=== PATIENT | male | born 1935 | race Caucasian/White ===

== ENCOUNTER 2017-06-12 08:45 | Emergency (ER) | payer MEDICARE, OTHER ==
[2017-06-12 08:56] VITALS: BP 138/78
[2017-06-12] MEDS ORDERED: Bacitracin Oint 1 GM U/D Packet TOP ONE (09:18)
[2017-06-12] MEDS ORDERED: Lidocaine 1% with EPINEPHrine 1:100,000 50 ML MDV SUBCUT STA (09:18)
--- NOTE | 2017-06-12 09:21 | EDM.PDOC ---
ED HPI GENERAL MEDICAL PROBLEM - General Chief Complaint: Laceration Stated Complaint: FALL VIA NORTH Time Seen by Provider: 06/12/17 09:12 Source of Information: Reports: Patient, RN Notes Reviewed History Limitations: Reports: No Limitations - History of Present Illness INITIAL COMMENTS - FREE TEXT/NARRATIVE: 82-year-old gentleman presents emergency department day following a head injury , he slipped on the ice this morning fell backwards and hit the back of his head he denies any loss of consciousness no nausea vomiting does have an open laceration bleeding is controlled no other complaints Denies Pain Score (Numeric/FACES): 0 - Related Data Allergies Allergy/AdvReac Type Severity Reaction Status Date / Time enviromental Allergy Other Uncoded 06/12/17 08:54 Home Meds: Home Meds Aspirin [Halfprin] 81 mg PO DAILY 06/01/13 [History] Desonide [Desonide 0.05%] 1 applic TOP BID PRN 06/01/13 [History] Fluticasone Propionate [Flovent] 2 puff IH DAILY 06/01/13 [History] Metoprolol Tartrate [Lopressor] 50 mg PO DAILY 06/01/13 [History] Multivitamin [Multi-Vitamin Daily] 1 each PO DAILY 06/01/13 [History] Cabery-3 Fatty Acids [Cabery-3] 1,000 mg PO DAILY 06/01/13 [History] Pravastatin Sodium [Pravastatin (Pravachol)] 40 mg PO BEDTIME 06/01/13 [History] Triamcinolone Acetonide [Triamcinolone Acetonide 0.1% Crm] 1 applic TOP BID PRN 06/01/13 [History] Past Medical History HEENT History: Reports: Hard of Hearing, Impaired Vision Cardiovascular History: Reports: Arrhythmia, High Cholesterol, Hypertension Dermatologic History: Reports: Other (See Below) Other Dermatologic History: penphagoid - Infectious Disease History Infectious Disease History: Reports: Chicken Pox, Mumps - Past Surgical History HEENT Surgical History: Reports: Tonsillectomy GI Surgical History: Reports: Colonoscopy Social & Family History - Tobacco Use Smoking Status *Q: Never Smoker Years of Tobacco use: 6 Used Tobacco, but Quit: Yes Month Tobacco Last Used: 01/1967 Second Hand Smoke Exposure: No - Caffeine Use Caffeine Use: Reports: Coffee, Soda, Tea - Alcohol Use Days Per Week of Alcohol Use: 7 Number of Drinks Per Day: 2 Total Drinks Per Week: 14 - Recreational Drug Use Recreational Drug Use: No ED ROS GENERAL - Review of Systems Review Of Systems: See Below Constitutional: Reports: No Symptoms HEENT: Reports: No Symptoms Respiratory: Reports: No Symptoms Cardiovascular: Reports: No Symptoms GI/Abdominal: Reports: No Symptoms : Reports: No Symptoms Skin: Reports: Wound Neurological: Reports: No Symptoms ED EXAM, SKIN/RASH Exam: See Below Exam Limited By: No Limitations General Appearance: Alert, WD/WN, No Apparent Distress Eye Exam: Bilateral Eye: Normal Inspection Ears: Normal External Exam, Normal Canal, Hearing Grossly Normal, Normal TMs Nose: Normal Inspection, Normal Mucosa, No Blood Throat/Mouth: Normal Inspection, Normal Lips, Normal Teeth, Normal Gums, Normal Oropharynx, Normal Voice, No Airway Compromise Head: Normocephalic, Other (Laceration approximately 5 cm in length at the occipital region scalp) Neck: Normal Inspection, Supple, Non-Tender, Full Range of Motion Respiratory/Chest: No Respiratory Distress, Lungs Clear, Normal Breath Sounds, No Accessory Muscle Use Cardiovascular: Regular Rate, Rhythm, No Murmur ED SKIN PROCEDURES - Laceration/Wound Repair Head Lac/Wound length In cm: 7 Appearance: Subcutaneous, Clean Distal NVT: Neuro & Vascular Intact, No Tendon Injury Anesthetic Type: Local Local Anesthesia - Lidocaine (Xylocaine): 1% with EPI Local Anesthetic Volume: 4cc Skin Prep: Chlorhexidine (Hibiciens), Saline Saline Irrigation (cc's): 100 Exploration/Debridement/Repair: Wound Explored, In a Bloodless Field, Explored to Base Closed with: [place] # of Sutures: 10 Sterile Dressing Applied: Nurse Tetanus Status Addressed: Yes (2012) Complications: No Course - Vital Signs Last Recorded V/S: Last Vital Signs Temp 97.2 F 06/12/17 09:05 Pulse 82 06/12/17 09:05 Resp 16 06/12/17 09:05 BP 138/78 06/12/17 09:05 Pulse Ox 98 06/12/17 09:05 - Orders/Labs/Meds Meds: Medications Discontinued Medications Generic Name Dose Route Start Last Admin Trade Name Freq PRN Reason Stop Dose Admin Bacitracin 1 dose 06/12/17 09:18 06/12/17 10:20 Bacitracin Oint 1 Gm TOP 06/12/17 09:19 1 dose ONETIME ONE Administration Lidocaine/Epinephrine 20 ml 06/12/17 09:18 06/12/17 10:19 Xylocaine 1% With Epinephrine 1:100,000 SUBCUT 06/12/17 09:19 10 ml NOW STA Administration Departure - Departure Time of Disposition: 10:50 Disposition: Home, Self-Care 01 Condition: Good Clinical Impression: Head injury Qualifiers: Encounter type: initial encounter Qualified Code(s): S09.90XA - Unspecified injury of head, initial encounter - Discharge Information Referrals: PCP,None [Primary Care Provider] - Forms: ED Department Discharge Additional Instructions: Follow wound care instruction sheet, staple removal in 10 days, follow with your primary care for staple removal or return to the emergency department - Assessment/Plan Plan: Assessment Acuity = acute Site and laterality = 7 cm laceration scalp occipital region Etiology = secondary to a fall Manifestations = none Location of injury = Home Lab values = CT scan of the head shows no acute intracranial process Plan Staple removal in 10 days, follow wound care instruction sheet return your primary care or the emergency department for staple removal Patient was in agreement with the plan all questions were answered, they were instructed to return to the emergency department or call for worsening symptoms. This note was dictated using [employer] voice recognition software please call with any questions.
--- NOTE | 2017-06-12 10:13 | CT ---
Head wo Cont INDICATION: head trauma fall Total DLP 815 COMPARISON: None FINDINGS: No acute intracranial hemorrhage, mass, or edema. Generalized cerebral and cerebellar volum e loss. Mild low attenuation in the periventricular and subcortical deep white matter is nonspecific, but most compatible with chronic small-vessel ischemic changes. Scalp laceration posteriorly. Remain zachery unremarkable. IMPRESSION: No acute intracranial abnormality.
== END 2017-06-12 11:00 | disposition home or self-care (01) ==
LOC: JP.ED 08:45
DX: S01.01XA Laceration without foreign body of scalp, initial encounter (principal); I10 Essential (primary) hypertension; Z79.82 Long term (current) use of aspirin; Z91.09 Other allergy status, other than to drugs and biological substances; Z79.899 Other long term (current) drug therapy; W19.XXXA Unspecified fall, initial encounter; Y92.009 Unspecified place in unspecified non-institutional (private) residence as the place of occurrence of the external cause
CPT/HCPCS: 12002; 70450; 70450-26; 99282-25; 99284-25

== ENCOUNTER 2018-01-08 06:49 | Day surgery (SDC) | payer MEDICARE, OTHER ==
[2018-01-08] MEDS ORDERED: fentaNYL 100 MCG/2 ML SDV ONE (07:23)
[2018-01-08] MEDS ORDERED: Propofol 200 MG/20 ML SDV ONE (07:23)
[2018-01-08] MEDS ORDERED: Lactated Ringers 1,000 ML IV SCH (07:30)
[2018-01-08 10:06] VITALS: BP 153/80
--- NOTE | 2018-01-08 10:53 | OR ---
DATE OF PROCEDURE: 01/08/2018 PREOPERATIVE DIAGNOSIS: History of adenomatous colon polyps. POSTOPERATIVE DIAGNOSES: Diverticulosis and history of adenomatous colon polyps. PROCEDURE: Colonoscopy to the cecum. SURGEON: Shashank Ferguson M.D. ANESTHESIA: IV anesthesia with monitored anesthesia care. INDICATION: This 82-year-old white male is referred for a colonoscopy because of a history of adenomatous colon polyps. His last colonoscopic exam was done three years ago. I counseled him for the procedure including risks and alternatives, and he gave his informed consent to proceed. DESCRIPTION OF PROCEDURE: The patient was placed in the left lateral decubitus position. IV anesthesia was administered by the Anesthesia Service. Time-out was held. A rectal exam was performed, which was unremarkable. The flexible video Olympus colonoscope was introduced through his anus, up his rectum, and out of his colon all the way to the cecum. En route, we saw multiple left-sided diverticula. There was no bleeding or inflammation associated with them. Once the cecum was reached, the scope was slowly withdrawn, examining the mucosa throughout. No additional mucosal abnormalities were noted. The scope was retroflexed in the rectum with the distal rectum appearing unremarkable. The scope was straightened and removed. He tolerated the procedure well. Shashank Ferguson MD /[id number] MTDD
== END 2018-01-08 10:00 | disposition home or self-care (01) ==
LOC: JP.SDS 06:49
PROVIDERS: ATTEND Surgery
DX: Z12.11 Encounter for screening for malignant neoplasm of colon (principal); K57.30 Diverticulosis of large intestine without perforation or abscess without bleeding; Z86.010 Personal history of colon polyps; Z79.51 Long term (current) use of inhaled steroids; Z79.82 Long term (current) use of aspirin; Z79.899 Other long term (current) drug therapy; Z98.890 Other specified postprocedural states
CPT/HCPCS: G0105; J2704; J3010; J7120

== ENCOUNTER 2020-11-07 12:20 | Emergency (ER) | payer MEDICARE ==
--- NOTE | 2020-11-07 12:41 | EDM.PDOC ---
ED HPI GENERAL MEDICAL PROBLEM - General Chief Complaint: Back Pain or Injury Stated Complaint: MEDICAL VIA NORTH Time Seen by Provider: 11/07/20 12:34 Source of Information: Reports: Patient, EMS, RN Notes Reviewed History Limitations: Reports: No Limitations - History of Present Illness INITIAL COMMENTS - FREE TEXT/NARRATIVE: 85-year-old gentleman presents emergency department with a complaint of mid back pain, he fell couple days ago unfortunately he hit the corner of a dresser mid back region and his pain has not improved to the point where he had to sleep on the floor last night and has difficulty moving because of the pain, he is pain- free when he lays still however pain is a significantly exacerbated with movement no loss of bowel or bladder no difficulty breathing. He his daughter did present to the emergency department and provided more information states that he had a syncopal event and did hit his head, he did not reveal this to us during the initial screening therefore tests and the work-up were delayed - Related Data Allergies Allergy/AdvReac Type Severity Reaction Status Date / Time enviromental Allergy Other Uncoded 11/07/20 12:21 Home Meds: Home Meds Aspirin [Halfprin] 81 mg PO DAILY 06/01/13 [History] Desonide [Desonide 0.05%] 1 applic TOP BID PRN 06/01/13 [History] Fluticasone Propionate [Flovent] 2 puff IH DAILY 06/01/13 [History] Metoprolol Tartrate [Lopressor] 50 mg PO DAILY 06/01/13 [History] Multivitamin [Multi-Vitamin Daily] 1 each PO DAILY 06/01/13 [History] Fitzwilliam-3 Fatty Acids [Fitzwilliam-3] 1,000 mg PO DAILY 06/01/13 [History] Pravastatin Sodium [Pravastatin (Pravachol)] 40 mg PO BEDTIME 06/01/13 [History] Triamcinolone Acetonide [Triamcinolone Acetonide 0.1% Crm] 1 applic TOP BID PRN 06/01/13 [History] Past Medical History HEENT History: Reports: Hard of Hearing, Impaired Vision Cardiovascular History: Reports: Arrhythmia, High Cholesterol, Hypertension Gastrointestinal History: Reports: Colon Polyp Oncologic (Cancer) History: Reports: Prostate Dermatologic History: Reports: Other (See Below) Other Dermatologic History: penphagoid - Infectious Disease History Infectious Disease History: Reports: Chicken Pox, Measles, Mumps - Past Surgical History HEENT Surgical History: Reports: Tonsillectomy Cardiovascular Surgical History: Reports: None GI Surgical History: Reports: Colonoscopy, Polypectomy Male Surgical History: Reports: Prostate Biopsy Dermatological Surgical History: Reports: None Social & Family History - Family History Family Medical History: No Pertinent Family History - Tobacco Use Tobacco Use Status *Q: Never Tobacco User - Caffeine Use Caffeine Use: Reports: Coffee - Recreational Drug Use Recreational Drug Use: No ED ROS GENERAL - Review of Systems Review Of Systems: See Below Constitutional: Reports: No Symptoms Respiratory: Reports: No Symptoms Cardiovascular: Reports: No Symptoms GI/Abdominal: Reports: No Symptoms Musculoskeletal: Reports: Back Pain ED EXAM, UPPER BACK/NECK PAIN - Physical Exam Exam: See Below Exam Limited By: No Limitations General Appearance: Alert, WD/WN, No Apparent Distress Cardiovascular/Respiratory: No Respiratory Distress Back Exam: Normal Inspection, Decreased Range of Motion, Vertebral Tenderness (About T6). No: CVA Tenderness (R), CVA Tenderness (L) Course - Vital Signs Last Recorded V/S: Last Vital Signs Temp 97 F 11/07/20 12:29 Pulse 90 11/07/20 16:05 Resp 20 11/07/20 12:29 BP 152/66 H 11/07/20 16:05 Pulse Ox 97 11/07/20 16:05 - Orders/Labs/Meds Orders: Active Orders 24 hr Category Date Time Status EKG Documentation Completion [RC] ASDIRECTED Care 11/07/20 15:58 Active Iopamidol [Isovue-300 (61%)] Med 11/07/20 15:45 Active 100 ml IV . DIRECTED Sodium Chloride 0.9% [Normal Saline] 1,000 ml Med 11/07/20 15:15 Active IV ASDIRECTED Sodium Chloride 0.9% [Normal Saline] 80 ml Med 11/07/20 15:45 Active IV ASDIRECTED EKG 12 Lead [EK] Routine Ther 11/07/20 15:58 Ordered Medication Orders Sodium Chloride (Normal Saline) 1,000 mls @ 500 mls/hr IV ASDIRECTED DANIEL Sodium Chloride (Normal Saline) 80 mls @ 3 mls/sec IV ASDIRECTED DANIEL Last Admin: 11/07/20 15:51 Dose: 3 mls/sec Documented by: DOUG Iopamidol (Iopamidol 612 Mg/Ml 100 Ml Bottle) 100 ml IV . DIRECTED DANIEL Last Admin: 11/07/20 15:51 Dose: 100 ml Documented by: [employer] Labs: Laboratory Tests 11/07/20 11/07/20 Range/Units 15:15 15:15 WBC 6.4 (4.5-11.0) K/uL RBC 3.86 L (4.30-5.90) M/uL Hgb 12.5 D (12.0-15.0) g/dL Hct 37.8 L (40.0-54.0) % MCV 98 (80-98) fL MCH 32 H (27-31) pg MCHC 33 (32-36) % Plt Count 152 (150-400) K/uL Neut % (Auto) 84 H (36-66) % Lymph % (Auto) 5 L (24-44) % Lamb % (Auto) 9 H (2-6) % Eos % (Auto) 2 (2-4) % Baso % (Auto) 0 (0-1) % Sodium 140 (140-148) mmol/L Potassium 4.1 (3.6-5.2) mmol/L Chloride 102 (100-108) mmol/L Carbon Dioxide 29 (21-32) mmol/L Anion Gap 9.3 (5.0-14.0) mmol/L BUN 20 H (7-18) mg/dL Creatinine 1.0 (0.8-1.3) mg/dL Est Cr Clr Drug Dosing 61.43 mL/min Estimated GFR (MDRD) > 60 (>60) Glucose 108 H (74-106) mg/dL Calcium 9.3 (8.5-10.1) mg/dL Meds: Medications Generic Name Dose Route Start Last Admin Trade Name Freq PRN Reason Stop Dose Admin Sodium Chloride 1,000 mls @ 500 mls/hr 11/07/20 15:15 Normal Saline IV ASDIRECTED DANIEL Sodium Chloride 80 mls @ 3 mls/sec 11/07/20 15:45 11/07/20 15:51 Normal Saline IV 3 mls/sec ASDIRECTED DANIEL Administration Iopamidol 100 ml 11/07/20 15:45 11/07/20 15:51 Iopamidol 612 Mg/Ml 100 Ml Bottle IV 100 ml . DIRECTED DANIEL Administration Discontinued Medications Generic Name Dose Route Start Last Admin Trade Name Ashok PRN Reason Stop Dose Admin Cyclobenzaprine HCl 10 mg 11/07/20 14:08 11/07/20 14:28 Cyclobenzaprine 10 Mg Tab PO 11/07/20 14:09 10 mg ONETIME ONE Administration Ketorolac Tromethamine 30 mg 11/07/20 14:08 11/07/20 14:36 Ketorolac 30 Mg/Ml Sdv IM 11/07/20 14:09 30 mg ONETIME ONE Administration Departure - Departure Time of Disposition: 18:50 Disposition: Home, Self-Care 01 Condition: Fair Clinical Impression: Compression fracture - Discharge Information Referrals: PCP,None [Primary Care Provider] - Forms: ED Department Discharge Additional Instructions: Use ibuprofen for baseline pain control use the hydrocodone for breakthrough pain, if you use the hydrocodone be cautious of constipation may want to take a stool softener and do not take this medication on empty stomach please follow-up with your primary care in the next 3 to 5 days for reevaluation and review of the CT scan results, Sepsis Event Note (ED) - Evaluation Sepsis Screening Result: No Definite Risk - Focused Exam Vital Signs: Vital Signs Temp Pulse Resp BP Pulse Ox 11/07/20 16:05 90 152/66 H 97 11/07/20 14:25 96 176/77 H 97 11/07/20 13:36 93 184/80 H 11/07/20 12:29 97 F 99 20 153/87 H 98 11/07/20 12:25 97 F 99 20 153/87 H 98 - My Orders Last 24 Hours: My Active Orders 11/07/20 15:15 Sodium Chloride 0.9% [Normal Saline] 1,000 ml IV ASDIRECTED 11/07/20 15:45 Iopamidol [Isovue-300 (61%)] 100 ml IV . DIRECTED Sodium Chloride 0.9% [Normal Saline] 80 ml IV ASDIRECTED 11/07/20 15:58 EKG Documentation Completion [RC] ASDIRECTED EKG 12 Lead [EK] Routine - Assessment/Plan Last 24 Hours: My Active Orders 11/07/20 15:15 Sodium Chloride 0.9% [Normal Saline] 1,000 ml IV ASDIRECTED 11/07/20 15:45 Iopamidol [Isovue-300 (61%)] 100 ml IV . DIRECTED Sodium Chloride 0.9% [Normal Saline] 80 ml IV ASDIRECTED 11/07/20 15:58 EKG Documentation Completion [RC] ASDIRECTED EKG 12 Lead [EK] Routine Plan: She is assessment Acuity = acute Site and laterality = compression fracture T12 Etiology = fall Manifestations = pain Location of injury = Home Lab values = CBC BMP unremarkable CT scan of the head shows significant volume loss thought to be related to small vessel chronic ischemic disease, CT scan of the chest shows compression fraction of T12 undetermined age as well as old compression fracture of T8 Plan Was able to get his pain under control with Toradol and Flexeril as well as fentanyl. Had a long discussion reviewing CT scan results and provided copies to his family he is going to follow-up with his primary care for further evaluation. Prescription written for hydrocodone 5/325 1 tab p.o. 3 times daily as needed total #10 provided for pain control. This note was dictated using [employer] voice recognition software please call with any questions on syntax or grammar.
--- NOTE | 2020-11-07 13:48 | CR ---
Thoracic Spine 3V CLINICAL HISTORY: Fall, pain FINDINGS: There is a compression deformity of T12. Chronology is uncertain. Alignment is maintained. There is no significant osteophytosis. The pedicles are unremarkable. Impression: Moderate compression deformity at T12 of uncertain chronology
[2020-11-07] MEDS ORDERED: Cyclobenzaprine 10 MG Tab PO ONE (14:08)
[2020-11-07] MEDS ORDERED: Ketorolac 30 MG/ML SDV IM ONE (14:08)
[2020-11-07] MEDS ORDERED: Sodium Chloride 0.9% 1,000 ML IV SCH (15:15)
[2020-11-07] MEDS ORDERED: Sodium Chloride 0.9% 80 ML IV SCH (15:45)
[2020-11-07] MEDS ORDERED: Iopamidol 612 MG/ML 100 ML Bottle IV SCH (15:45)
[2020-11-07 16:05] VITALS: BP 152/66; PULSE 90
--- NOTE | 2020-11-07 16:37 | CRLCT ---
INDICATION: Status post fall with T6 pain. COMPARISON: CT of the chest from 06/25/2018 TECHNIQUE: : CT examination of the chest was performed with the uneventful intravenous administration of 100 cc of Isovue-300 while 3 mm thick axial sections were obtained from above the apices of the lungs to the lung bases. Please note that all CT scans at this facility use dose modulation, iterative reconstruction, and/or weight-based dosing when appropriate to reduce radiation dose to as low as reasonably achievable. FINDINGS: : The previously seen mild patchy infiltrate in the posterior left lung base has resolved. There continues to be minimal patchy density in the dependent portions of both lower lobes consistent with mild dependent atelectasis. The previously seen mild linear atelectasis in the posterior inferior lingula at the lung base has nearly completely resolved. The lungs are otherwise clear. There is satisfactory in enhancement of the pulmonary arteries with no sign of pulmonary embolism. There is no sign of mediastinal or hilar mass or adenopathy. Again seen is moderate triple-vessel coronary calcification. Again seen is mild calcification of the mitral valve annulus. The heart is otherwise normal in appearance for the patient`s age, as are the aorta and other ascending great vessels. There is no sign of supraclavicular or axillary mass or adenopathy. The liver is again seen to be slightly low in density representing mild fatty infiltration. The rest of the liver is normal in appearance. The visualized spleen, pancreas, visualized superior right kidney, and adrenals are normal in appearance. Again seen is a cyst in the lower pole of the left kidney, only partially included on today`s study, measuring at least 2.2 centimeters in diameter. There is a new moderate T12 compression fracture with prominent depression of the superior T12 endplate. There is minimal retropulsion of the posterior-superior margin of the T12 vertebral body into the spinal canal, without spinal stenosis. There is no definite paraspinal soft tissue swelling to suggest that this is an acute fracture, although an acute fracture cannot be excluded. Again seen are mild superior T8 and T9 endplate fractures with stable minimal anterior wedging of the T8 vertebral body from an old minimal compression fracture. There is no sign of any additional osseous abnormality, specifically with no sign of any fracture in the T6 region to correspond to the history of pain in this region. There is no sign of fracture of the sternum, manubrium, visualized shoulder girdle, or ribs. IMPRESSION: New moderate T12 compression fracture of indeterminate age. No definite paraspinous soft tissue swelling seen. Stable old mild T8 compression fracture and stable mild superior T8 and T9 endplate fractures. No sign of any osseous abnormality more superiorly in the T6 region to correlate with the history of pain. Stable moderate triple-vessel coronary calcification. Please note that all CT scans at this facility use dose modulation, iterative reconstruction, and/or weight-based dosing when appropriate to reduce radiation dose to as low as reasonably achievable. Dictated by Gonzalo Wilson MD @ 11/07/2020 4:36:[address] Gonzalo Wilson @ Nov 07 2020 4:36PM
--- NOTE | 2020-11-07 17:35 | CRLCT ---
DATE: 11/07/2020. CLINICAL HISTORY: Patient with fall and head injury. TECHNIQUE: Standard helical CT image acquisition of the brain was performed. COMPARISON: Head CT dated 06/12/2017. FINDINGS: There is no intracranial hemorrhage. No extra-axial collection, mass effect, or midline shift. Patchy hypoattenuation within the white matter of both hemispheres likely reflects sequela of chronic small vessel ischemia. Multifocal intracranial atherosclerotic calcification. Mild to moderate diffuse parenchymal volume loss with resulting prominence of cerebral sulci and the ventricular system. The calvarium is unremarkable. Bilateral lens replacements. The paranasal sinuses are unremarkable. The mastoid air cells are unremarkable. The soft tissues are unremarkable. IMPRESSION: 1. No CT evidence of acute intracranial abnormality or closed-head injury. 2. No significant interval change in mild to moderate diffuse parenchymal volume loss and findings most consistent with sequela of chronic small vessel ischemia. Please note that all CT scans at this facility use dose modulation, iterative reconstruction, and/or weight-based dosing when appropriate to reduce radiation dose to as low as reasonably achievable. Dictated by Regulo Stanley MD @ 11/07/2020 5:34:[address] Regulo Stanley @ Nov 07 2020 5:34PM
== END 2020-11-07 19:17 | disposition home or self-care (01) ==
LOC: JP.ED 12:20
DX: S22.050A Wedge compression fracture of T5-T6 vertebra, initial encounter for closed fracture (principal); E78.00 Pure hypercholesterolemia, unspecified; I10 Essential (primary) hypertension; Z91.09 Other allergy status, other than to drugs and biological substances; Z79.82 Long term (current) use of aspirin; W18.09XA Striking against other object with subsequent fall, initial encounter
CPT/HCPCS: 36415; 70450; 71260; 72072; 80048; 85025; 93005; 96372; 99285; A9270; J1885; Q9967

== ENCOUNTER 2020-11-08 14:20 | Observation (INO) | payer MEDICARE ==
[2020-11-08] MEDS ORDERED: Ondansetron 4 MG Tab.DIS PO PRN (15:23)
[2020-11-08] MEDS ORDERED: Ondansetron 4 MG/2 ML SDV IV PRN (15:23)
[2020-11-08] MEDS ORDERED: Ibuprofen 600 MG Tab PO PRN (15:23)
[2020-11-08] MEDS ORDERED: Albuterol 0.083% 2.5 MG/3 ML Neb Soln NEB PRN (15:23)
[2020-11-08] MEDS ORDERED: Magnesium Hydroxide 400 MG/5 ML Susp 30 ML Cup PO PRN (15:23)
--- NOTE | 2020-11-08 15:33 | PCM.HP.2 ---
H&P History of Present Illness - General Date of Service: 11/08/20 Admit Problem/Dx: Admission Diagnosis/Problem Admission Diagnosis/Problem Compression fracture of T12 vertebra Source of Information: Patient, Family, Provider History Limitations: Reports: No Limitations - History of Present Illness Initial Comments - Free Text/Narative: CC: back hurts HPI: Itz presents as a direct admission after follow-up in the clinic with his primary care provider. He reports that he fell on Thursday night, 3 nights ago. He lost his balance and fell backwards striking the middle of his back on the corner of a piece of furniture. He had immediate achy pain but was still able to function to some extent. Over the next couple of days he had progressive achy with some sharp pains right in the middle of his back. The pain occupied a large area of the center of his back but did not specifically radiate. He tried aspirin at home as well as some pain pills with some relief f rom the pain pills. Pain is much worse with activity and better when he is laying flat. He has been having difficulty walking and getting around so he came to the emergency room yesterday. He was diagnosed with a T12 compression fracture but wanted to try it at home. He had a very difficult night with fair amount of pain and very poor mobility so he went to the clinic today and was sent for direct admission. He thinks that things have been going well recently but his daughter notes that he has had difficulty with passing urine and has seemed to be "off". He does not seem as sharp or active his usual but this has been going on for several months. He does not report any headaches, fevers, shortness of breath or chest pain. No change in bowel habits. No obvious sick contacts. No new medications. - Related Data Allergies/Adverse Reactions: Allergies Allergy/AdvReac Type Severity Reaction Status Date / Time enviromental Allergy Other Uncoded 11/07/20 12:21 Home Medications: Home Meds Aspirin [Halfprin] 81 mg PO DAILY 06/01/13 [History] Desonide [Desonide 0.05%] 1 applic TOP BID PRN 06/01/13 [History] Fluticasone Propionate [Flovent] 2 puff IH DAILY 06/01/13 [History] Metoprolol Tartrate [Lopressor] 50 mg PO DAILY 06/01/13 [History] Multivitamin [Multi-Vitamin Daily] 1 each PO DAILY 06/01/13 [History] Newberg-3 Fatty Acids [Newberg-3] 1,000 mg PO DAILY 06/01/13 [History] Pravastatin Sodium [Pravastatin (Pravachol)] 40 mg PO BEDTIME 06/01/13 [History] Triamcinolone Acetonide [Triamcinolone Acetonide 0.1% Crm] 1 applic TOP BID PRN 06/01/13 [History] Past Medical History HEENT History: Reports: Hard of Hearing, Impaired Vision Cardiovascular History: Reports: Arrhythmia, High Cholesterol, Hypertension Gastrointestinal History: Reports: Colon Polyp Oncologic (Cancer) History: Reports: Prostate Dermatologic History: Reports: Other (See Below) Other Dermatologic History: penphagoid - Infectious Disease History Infectious Disease History: Reports: Chicken Pox, Measles, Mumps - Past Surgical History HEENT Surgical History: Reports: Tonsillectomy Cardiovascular Surgical History: Reports: None GI Surgical History: Reports: Colonoscopy, Polypectomy Male Surgical History: Reports: Prostate Biopsy Dermatological Surgical History: Reports: None Social & Family History - Family History Family Medical History: No Pertinent Family History - Tobacco Use Tobacco Use Status *Q: Unknown Ever Used Tobacco Tobacco Use Within Last Twelve Months: No - Caffeine Use Caffeine Use: Reports: Coffee H&P Review of Systems - Review of Systems: Review Of Systems: See Below Free Text/Narrative: A complete 12 point review of systems was obtained. Pertinent positives and negatives are noted in the history of present illness. All other systems were reviewed and were negative except as noted. Exam - Exam Exam: See Below - Exam Quality Assessment: No: Supplemental Oxygen General: Alert, Oriented, Cooperative. No: Mild Distress HEENT: Conjunctiva Clear, Mucosa Moist & [place]. No: Scleral Icterus Neck: Supple, Trachea Midline Lungs: Clear to Auscultation, Normal Respiratory Effort Cardiovascular: Regular Rate, Regular Rhythm, Systolic Murmur GI/Abdominal Exam: Normal Bowel Sounds, Soft, Non-Tender, No Distention Back Exam: Paraspinal Tenderness, Vertebral Tenderness (about T12) Extremities: No Pedal Edema, Other (abrasion right knee ). No: Increased Warmth Peripheral Pulses: 2+: Dorsalis Pedis (L), Dorsalis Pedis (R) Skin: Warm, Dry Neuro Extensive - Mental Status: Alert, Oriented x3, Nl Response to Commands Neuro Extensive - Motor, Sensory, Reflexes: No: Dysarthria, Abnormal Motor, Tremor Psychiatric: Alert, Normal Affect *Q Meaningful Use (ADM) - VTE Risk Assess *Q Each Risk Factor Represents 1 Point: Obesity ( BMI > 25 kg/m2) Total Score 1 Point Risk Factors: 1 Each Risk Factor Represents 2 Points: Malignancy (present or previous) Total Score 2 Point Risk Factors: 2 Each Risk Factor Represents 3 Points: Age 75 Years or Greater Total Score 3 Point Risk Factors: 3 Each Risk Factor Represents 5 Points: None Total Score 5 Point Risk Factors: 0 Venous Thromboembolism Risk Factor Score *Q: 6 - Problem List (1) T12 compression fracture SNOMED Code(s): 848288544, 276650239 ICD Code: S22.080A - WEDGE COMPRESSION FRACTURE OF T11-T12 VERTEBRA, INIT Status: Acute Current Visit: Yes Qualifiers: Encounter type: initial encounter Qualified Code(s): S22.080A - Wedge compression fracture of T11-T12 vertebra, initial encounter for closed fracture (2) Weakness generalized SNOMED Code(s): 74058139 ICD Code: R53.1 - WEAKNESS Status: Acute Current Visit: Yes (3) Prostate cancer SNOMED Code(s): 751235679 ICD Code: C61 - MALIGNANT NEOPLASM OF PROSTATE Status: Chronic Current Visit: Yes Problem List Initiated/Reviewed/Updated: Yes Orders Last 24hrs: Active Orders 24 hr Category Date Time Status Patient Status [ADT] Routine ADT 11/08/20 15:23 Active Antiembolic Devices [RC] .Routine Care 11/08/20 15:23 Active Intake and Output [RC] QSHIFT Care 11/08/20 15:23 Active Notify Provider Vital Signs [RC] ASDIRECTED Care 11/08/20 15:23 Active Oxygen Therapy [RC] PRN Care 11/08/20 15:23 Active RT Aerosol Therapy [RC] ASDIRECTED Care 11/08/20 15:26 Active Up With Assistance [RC] ASDIRECTED Care 11/08/20 15:23 Active VTE/DVT Education [RC] Per Unit Routine Care 11/08/20 15:23 Active Vital Signs [RC] Q4H Care 11/08/20 15:23 Active OT Evaluation and Treatment [CONS] Routine Cons 11/08/20 15:28 Active PT Evaluation and Treatment [CONS] Routine Cons 11/08/20 15:26 Active Regular Diet [DIET] Diet 11/08/20 Dinner Active C-REACTIVE PROTEIN [CHEM] Routine Lab 11/08/20 15:29 Ordered SEDIMENTATION RATE MANUAL [HEME] Routine Lab 11/08/20 15:29 Ordered TSH ULTRASENSITIVE [CHEM] Routine Lab 11/08/20 15:29 Ordered UA W/MICROSCOPIC [URIN] Routine Lab 11/08/20 15:29 Ordered Acetaminophen/HYDROcodone [[place] 325-5 MG] Med 11/08/20 15:23 Ordered 1 - 2 tab PO Q4H PRN Albuterol [Proventil Neb Soln] Med 11/08/20 15:23 Ordered 2.5 mg NEB Q4H PRN Calcitonin ([place]) [Miacalcin Nasal [place]] Med 11/08/20 15:30 Ordered 1 ml ROXIE DAILY Docusate Sodium/Sennosides [Senna Plus] Med 11/08/20 15:23 Ordered 1 tab PO BID PRN HYDROmorphone [Dilaudid] Med 11/08/20 15:23 Ordered 0.5 mg IVPUSH Q2H PRN Ibuprofen [Motrin] Med 11/08/20 15:23 Ordered 600 mg PO Q6H PRN Magnesium Hydroxide [Milk of Magnesia] Med 11/08/20 15:23 Ordered 30 ml PO Q12H PRN Melatonin Med 11/08/20 21:00 Ordered 9 mg PO BEDTIME Ondansetron [Zofran ODT] Med 11/08/20 15:23 Ordered 4 mg PO Q6H PRN Ondansetron [Zofran] Med 11/08/20 15:23 Ordered 4 mg IV Q6H PRN Sequential Compression Device [OM.PC] Routine Oth 11/08/20 15:23 Ordered Resuscitation Status Routine Resus Stat 11/08/20 15:23 Ordered Medication Orders Hydrocodone Bitart/Acetaminophen (Acetaminophen/Hydrocodone 325-5 Mg Tab) 1 - 2 tab PO Q4H PRN PRN Reason: Pain Albuterol (Albuterol 0.083% 2.5 Mg/3 Ml Neb Soln) 2.5 mg NEB Q4H PRN PRN Reason: Shortness Of Breath/wheezing Calcitonin [place] (Calcitonin ([place]) Nasal [place] 3.7 Ml Bottle) 1 ml ROXIE DAILY DANIEL Hydromorphone HCl (Hydromorphone 1 Mg/Ml Syringe) 0.5 mg IVPUSH Q2H PRN PRN Reason: Pain (severe 7-10) Ibuprofen (Ibuprofen 600 Mg Tab) 600 mg PO Q6H PRN PRN Reason: Pain/Fever Magnesium Hydroxide (Magnesium Hydroxide 400 Mg/5 Ml Susp 30 Ml Cup) 30 ml PO Q12H PRN PRN Reason: Constipation Melatonin (Melatonin 3 Mg Tab) 9 mg PO BEDTIME DANIEL Ondansetron HCl (Ondansetron 4 Mg Tab.Dis) 4 mg PO Q6H PRN PRN Reason: Nausea able to take PO Ondansetron HCl (Ondansetron 4 Mg/2 Ml Sdv) 4 mg IV Q6H PRN PRN Reason: Nausea/Vomiting Senna/Docusate Sodium (Docusate Sodium/Sennosides 50-8.6 Mg Tab) 1 tab PO BID PRN PRN Reason: Constipation Assessment/Plan Comment:: ASSESSMENT AND PLAN - T12 compression fracture with back pain and weakness-he describes losing his balance but syncope cannot be ruled out. There has been no recurrence of the falling. He may have an occult infection versus other etiology causing his balance difficulties. He is not moving well and is failing despite having pain medications, adequate tools and help at home. -Admission for symptomatic management of pain with ibuprofen and hydrocodone -Calcitonin daily -Physical and occupational therapy -Aspercreme as needed -Consider muscle relaxer -May need TLSO brace Generalized weakness-patient does not endorse this but his daughter has noticed a decline over the winter months and more recently over the last few weeks. No specific symptoms. Examination benign. No evidence for neurologic compromise. Head CT was normal. Labs fairly normal yesterday. -CRP, sedimentation rate, TSH -Urinalysis History of prostate cancer-difficulty with incontinence since that time. Maintenance issues - -DVT prophylaxis-SCD -GI prophylaxis-not indicated -Nutrition-regular -[place] catheter-not indicated CODE STATUS -full code Admission justification -this patient will be admitted to observation status for pain control, physical therapy and expedited work-up Disposition -I anticipate discharge home after the hospital stay Primary care physician -Dr. Otto Brooks M.D. - Mortality Measure Prognosis:: Good
[2020-11-08] MEDS ORDERED: HYDROmorphone 0.5 MG/0.5 ML Syringe IVPUSH PRN (15:48)
[2020-11-08] MEDS ORDERED: Trolamine Salicylate/Aloe Vera 10% Crm 85 GM Tube TOP PRN (16:10)
[2020-11-08] MEDS: Calcitonin (Salmon) Nasal Spray 3.7 ML Bottle NAS SCH (16:37)
[2020-11-08] MEDS: Acetaminophen/HYDROcodone 325-5 MG Tab PO PRN ×2 (18:09→22:04)
[2020-11-08] MEDS: Melatonin 3 MG Tab PO SCH (22:04)
[2020-11-09] MEDS: Acetaminophen/HYDROcodone 325-5 MG Tab PO PRN ×2 (04:42→19:46)
[2020-11-09] MEDS: Calcitonin (Salmon) Nasal Spray 3.7 ML Bottle NAS SCH (08:26)
--- NOTE | 2020-11-09 12:22 | PCM.PN ---
- General Info Date of Service: 11/09/20 Subjective Update: No acute events overnight. Vital signs have been stable. Patient is moving a little better today. Back pain is slightly better today but still fairly significant with activity. He does continue to have episodes of confusion and some difficulty finishing sentences. His balance continues to be off and he seems to be leaning forward. No fevers. Sedimentation rate was mildly elevated but CRP was quite elevated. No obvious cause for this elevation. Functional Status: Reports: Pain Controlled, Tolerating Diet - Review of Systems General: Reports: Weakness Musculoskeletal: Reports: Back Pain Neurological: Reports: Confusion - Patient Data Vitals - Most Recent: Last Vital Signs Temp 36.7 C 11/09/20 08:00 Pulse 82 11/09/20 08:00 Resp 15 11/09/20 08:00 BP 154/83 H 11/09/20 08:00 Pulse Ox 95 11/09/20 08:00 Weight - Most Recent: 99.654 kg I&O - Last 24 Hours: Intake & Output 11/08/20 11/09/20 11/09/20 22:59 06:59 14:59 Intake Total 360 600 Output Total 120 150 Balance 240 450 Lab Results Last 24 Hours: Laboratory Results - last 24 hr 11/08/20 11/08/20 11/08/20 Range/Units 15:29 15:42 15:42 ESR 39 H (0-20) mm/hr C-Reactive Protein 11.92 H (0.0-0.3) mg/dL TSH, Ultra Sensitive 3.447 (0.358-3.740) uIU/mL Urine Color Yellow (YELLOW) Urine Appearance Clear (CLEAR) Urine pH 5.5 (5.0-8.0) Ur Specific [place] 1.015 (1.008-1.030) Urine Protein 30 H (NEGATIVE) mg/dL Urine Glucose (UA) Negative (NEGATIVE) mg/dL Urine Ketones 15 H (NEGATIVE) mg/dL Urine Occult Blood Negative (NEGATIVE) Urine Nitrite Negative (NEGATIVE) Urine Bilirubin Negative (NEGATIVE) Urine Urobilinogen 0.2 (0.2-1.0) EU/dL Ur Leukocyte Esterase Negative (NEGATIVE) Urine RBC Not seen (0-5) Urine WBC Not seen (0-5) Ur Epithelial Cells Occasional Amorphous Sediment Rare Urine Bacteria Moderate Urine Mucus Not seen Med Orders - Current: Current Medications Hydrocodone Bitart/Acetaminophen (Acetaminophen/Hydrocodone 325-5 Mg Tab) 1 - 2 tab PO Q4H PRN PRN Reason: Pain Last Admin: 11/09/20 04:42 Dose: 1 tab Documented by: Albuterol (Albuterol 0.083% 2.5 Mg/3 Ml Neb Soln) 2.5 mg NEB Q4H PRN PRN Reason: Shortness Of Breath/wheezing Calcitonin [place] (Calcitonin ([place]) Nasal [place] 3.7 Ml Bottle) 0 ml ROXIE DAILY [facility] Last Admin: 11/09/20 08:26 Dose: 1 spray Documented by: Hydromorphone HCl (Hydromorphone 0.5 Mg/0.5 Ml Syringe) 0.5 mg IVPUSH Q2H PRN PRN Reason: Pain (severe 7-10) Ibuprofen (Ibuprofen 600 Mg Tab) 600 mg PO Q6H PRN PRN Reason: Pain/Fever Magnesium Hydroxide (Magnesium Hydroxide 400 Mg/5 Ml Susp 30 Ml Cup) 30 ml PO Q12H PRN PRN Reason: Constipation Melatonin (Melatonin 3 Mg Tab) 9 mg PO BEDTIME [facility] Last Admin: 11/08/20 22:04 Dose: 9 mg Documented by: Ondansetron HCl (Ondansetron 4 Mg Tab.Dis) 4 mg PO Q6H PRN PRN Reason: Nausea able to take PO Ondansetron HCl (Ondansetron 4 Mg/2 Ml Sdv) 4 mg IV Q6H PRN PRN Reason: Nausea/Vomiting Senna/Docusate Sodium (Docusate Sodium/Sennosides 50-8.6 Mg Tab) 1 tab PO BID PRN PRN Reason: Constipation Trolamine Salicylate (Trolamine Salicylate/Aloe Vera 10% Crm 85 Gm Tube) 0 gm TOP Q1H PRN PRN Reason: back pain - Exam Quality Assessment: No: Supplemental Oxygen General: Alert, Cooperative, No Acute Distress Lungs: Normal Respiratory Effort GI/Abdominal Exam: Soft, No Distention Extremities: No Pedal Edema Skin: Warm, Dry Psy/Mental Status: Alert, Normal Affect - Patient Data Lab Results Last 24 hrs: Laboratory Results - last 24 hr 11/08/20 11/08/20 11/08/20 Range/Units 15:29 15:42 15:42 ESR 39 H (0-20) mm/hr C-Reactive Protein 11.92 H (0.0-0.3) mg/dL TSH, Ultra Sensitive 3.447 (0.358-3.740) uIU/mL Urine Color Yellow (YELLOW) Urine Appearance Clear (CLEAR) Urine pH 5.5 (5.0-8.0) Ur Specific [place] 1.015 (1.008-1.030) Urine Protein 30 H (NEGATIVE) mg/dL Urine Glucose (UA) Negative (NEGATIVE) mg/dL Urine Ketones 15 H (NEGATIVE) mg/dL Urine Occult Blood Negative (NEGATIVE) Urine Nitrite Negative (NEGATIVE) Urine Bilirubin Negative (NEGATIVE) Urine Urobilinogen 0.2 (0.2-1.0) EU/dL Ur Leukocyte Esterase Negative (NEGATIVE) Urine RBC Not seen (0-5) Urine WBC Not seen (0-5) Ur Epithelial Cells Occasional Amorphous Sediment Rare Urine Bacteria Moderate Urine Mucus Not seen Sepsis Event Note - Evaluation Sepsis Screening Result: No Definite Risk - Focused Exam Vital Signs: Vital Signs Temp Pulse Resp BP Pulse Ox 11/09/20 08:00 36.7 C 82 15 154/83 H 95 11/09/20 03:00 36.9 C 84 14 166/80 H - Problem List & Annotations (1) T12 compression fracture SNOMED Code(s): 037354761, 918347078 Code(s): S22.080A - WEDGE COMPRESSION FRACTURE OF T11-T12 VERTEBRA, INIT Status: Acute Current Visit: Yes Qualifiers: Encounter type: initial encounter Qualified Code(s): S22.080A - Wedge compression fracture of T11-T12 vertebra, initial encounter for closed fracture (2) Weakness generalized SNOMED Code(s): 10325065 Code(s): R53.1 - WEAKNESS Status: Acute Current Visit: Yes (3) Prostate cancer SNOMED Code(s): 551772137 Code(s): C61 - MALIGNANT NEOPLASM OF PROSTATE Status: Chronic Current Visit: Yes - Problem List Review Problem List Initiated/Reviewed/Updated: Yes - My Orders Last 24 Hours: My Active Orders 11/08/20 15:23 Patient Status [ADT] Routine Antiembolic Devices [RC] .Routine Intake and Output [RC] QSHIFT Notify Provider Vital Signs [RC] ASDIRECTED Oxygen Therapy [RC] PRN Up With Assistance [RC] ASDIRECTED VTE/DVT Education [RC] Per Unit Routine Vital Signs [RC] Q4H Acetaminophen/HYDROcodone [[place] 325-5 MG] 1 - 2 tab PO Q4H PRN Albuterol [Proventil Neb Soln] 2.5 mg NEB Q4H PRN Docusate Sodium/Sennosides [Senna Plus] 1 tab PO BID PRN Ibuprofen [Motrin] 600 mg PO Q6H PRN Magnesium Hydroxide [Milk of Magnesia] 30 ml PO Q12H PRN Ondansetron [Zofran ODT] 4 mg PO Q6H PRN Ondansetron [Zofran] 4 mg IV Q6H PRN Sequential Compression Device [OM.PC] Routine Resuscitation Status Routine 11/08/20 15:26 RT Aerosol Therapy [RC] ASDIRECTED PT Evaluation and Treatment [CONS] Routine 11/08/20 15:28 OT Evaluation and Treatment [CONS] Routine 11/08/20 15:48 HYDROmorphone [Dilaudid] 0.5 mg IVPUSH Q2H PRN 11/08/20 16:00 Calcitonin ([place]) [Miacalcin Nasal [place]] 0 ml ROXIE DAILY 11/08/20 16:10 Trolamine Salicylate/Aloe Vera [Aspercreme 10%] 0 gm TOP Q1H PRN 11/08/20 Dinner Regular Diet [DIET] 11/08/20 18:00 CULTURE URINE [RM] Routine 11/08/20 21:00 Melatonin 9 mg PO BEDTIME 11/09/20 12:18 Brain wo Cont [MR] Routine 11/10/20 05:00 CBC W/O DIFF,HEMOGRAM [HEME] Timed (1) COMPREHENSIVE METABOLIC PN,CMP [CHEM] Timed CRP [C-REACTIVE PROTEIN] [CHEM] Timed 11/10/20 07:00 Abdomen Pelvis w Cont [CT] Routine - Plan Plan:: ASSESSMENT AND PLAN - T12 compression fracture with back pain and weakness-pain control seems to be improving but ambulation still quite impaired mostly because of balance. Recent head CT unremarkable as cause for poor balance. -symptomatic management of pain with ibuprofen and hydrocodone -Calcitonin daily -Physical and occupational therapy -Aspercreme as needed -Consider muscle relaxer -May need TLSO brace Generalized weakness and confusion/memory trouble-recent decline with poor memory and balance issues. Head CT unremarkable. CRP quite elevated with no obvious cause. No evidence for infection that I can find so far. -MRI of the brain -CT of the abdomen and pelvis in the morning History of prostate cancer-difficulty with incontinence since treatment. No evidence for infection based on urinalysis. Maintenance issues - -DVT prophylaxis-SCD -GI prophylaxis-not indicated -Nutrition-regular Admission justification -this patient will be admitted to observation status for pain control, physical therapy and expedited work-up Disposition -I anticipate discharge home after the hospital stay Brian Brooks M.D.
[2020-11-09] MEDS: Melatonin 3 MG Tab PO SCH (21:47)
[2020-11-10] MEDS: Acetaminophen/HYDROcodone 325-5 MG Tab PO PRN (03:57)
[2020-11-10] MEDS ORDERED: Iopamidol 612 MG/ML 150 ML Bottle IV STA (05:42)
--- NOTE | 2020-11-10 07:34 | CRLCT ---
INDICATION : Prostate carcinoma. Diarrhea. TECHNIQUE : CT Scan of the abdomen and pelvis. 150 cc nonionic IV contrast COMPARISON : CT chest 11/07/2020 FINDINGS: Lung bases: Clear. Some localized thickening or soft tissue nodularity along the inferior posterior margin of the right diaphragm 2.2 cm image 43. Liver, spleen, adrenal glands, pancreas: Unremarkable. Left renal cyst with no hydronephrosis or mass lesions of either kidney. No adenopathy. GI tract: Normal in caliber. Normal colonic stool volume. No significant wall thickening. Occasional diverticula of the sigmoid. Lymph nodes: No pathologic lymph node enlargement. Pelvis: Prostate radiotherapy seeds. Mildly distended urinary bladder. No adenopathy or free fluid. Skeletal: Compression fracture deformities of T11 and L4. T11 and L4 fractures with 65 percent and 60 percent loss of vertical height of the vertebral bodies. No suspicious blastic lesions. IMPRESSION: 1. No acute radiographic abnormalities. No signs of obvious colitis or obstruction. Colonic diverticulosis without inflammatory pericolonic fat stranding. 2. Posttherapy changes at the prostate. No sign of definite metastatic lesion. 3. Compression fractures T11 and L4. Unable to determine on this exam whether these are acute or chronic, however T11 is minimally increased in overall sclerosis, this would favor chronic. 4. Small amount of nodular thickening along the posterior margin of the right diaphragm in the right upper quadrant. Uncertain significance. Possibly area of accessory slip of diaphragm muscle. Please note that all CT scans at this facility use dose modulation, iterative reconstruction, and/or weight-based dosing when appropriate to reduce radiation dose to as low as reasonably achievable. Dictated by Efraín Donohue MD @ 11/10/2020 7:32:[address] Efraín Donohue @ Nov 10 2020 7:32AM
[2020-11-10] MEDS: Calcitonin (Salmon) Nasal Spray 3.7 ML Bottle NAS SCH (10:00)
[2020-11-10] MEDS: Tamsulosin 0.4 MG Cap.ER **PTOM PO SCH (13:47)
[2020-11-10] MEDS: Metoprolol Tartrate 50 MG **PTOM PO SCH (13:47)
[2020-11-10] MEDS: CITALOPRAM 20 MG PO SCH (13:47)
--- NOTE | 2020-11-10 15:22 | PCM.PN ---
- General Info Date of Service: 11/10/20 Subjective Update: There were no acute events overnight. Patient reports improvement in his pain control compared to yesterday. He was able to get out of the chair by himself. He was able to walk around the room and a short ways down the choi with a walker. Pain remained controlled during the exercise. Appetite has been good. Vital signs have been stable. He is more alert and seems to be back to baseline today. 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 The patient feels he would benefit from subacute rehab as does the family. Functional Status: Reports: Pain Controlled - Patient Data Vitals - Most Recent: Last Vital Signs Temp 36.3 C 11/10/20 12:04 Pulse 91 11/10/20 13:47 Resp 14 11/10/20 12:04 BP 139/86 11/10/20 13:47 Pulse Ox 98 11/10/20 12:04 Weight - Most Recent: 99.337 kg I&O - Last 24 Hours: Intake & Output 11/10/20 11/10/20 11/10/20 06:59 14:59 22:59 Intake Total 480 Output Total 600 Balance -600 480 Lab Results Last 24 Hours: Laboratory Results - last 24 hr 11/10/20 11/10/20 Range/Units 05:14 05:14 WBC 4.5 (4.5-11.0) K/uL RBC 3.57 L (4.30-5.90) M/uL Hgb 11.4 L (12.0-15.0) g/dL Hct 34.8 L (40.0-54.0) % MCV 98 (80-98) fL MCH 32 H (27-31) pg MCHC 33 (32-36) % Plt Count 184 (150-400) K/uL Sodium 140 (140-148) mmol/L Potassium 3.8 (3.6-5.2) mmol/L Chloride 103 (100-108) mmol/L Carbon Dioxide 27 (21-32) mmol/L Anion Gap 10.4 (5.0-14.0) mmol/L BUN 19 H (7-18) mg/dL Creatinine 1.1 (0.8-1.3) mg/dL Est Cr Clr Drug Dosing 54.19 mL/min Estimated GFR (MDRD) > 60 (>60) Glucose 144 H (74-106) mg/dL Calcium 8.3 L (8.5-10.1) mg/dL Total Bilirubin 0.6 (0.2-1.0) mg/dL AST 36 (15-37) U/L ALT 36 (12-78) U/L Alkaline Phosphatase 60 (46-116) U/L C-Reactive Protein 10.81 H (0.0-0.3) mg/dL Total Protein 5.9 L (6.4-8.2) g/dL Albumin 2.6 L (3.4-5.0) g/dL Globulin 3.3 (2.3-3.5) g/dL Albumin/Globulin Ratio 0.8 L (1.2-2.2) [place] Results Last 24 Hours: Microbiology 11/08/20 18:00 Urine Culture - Preliminary Urine, Clean Catch MIXED POSITIVE ELIZ DAY 1 Med Orders - Current: Current Medications Hydrocodone Bitart/Acetaminophen (Acetaminophen/Hydrocodone 325-5 Mg Tab) 1 - 2 tab PO Q4H PRN PRN Reason: Pain Last Admin: 11/10/20 03:57 Dose: 1 tab Documented by: Albuterol (Albuterol 0.083% 2.5 Mg/3 Ml Neb Soln) 2.5 mg NEB Q4H PRN PRN Reason: Shortness Of Breath/wheezing Calcitonin [place] (Calcitonin ([place]) Nasal [place] 3.7 Ml Bottle) 0 ml ROXIE DAILY [facility] Last Admin: 11/10/20 10:00 Dose: 1 spray Documented by: Citalopram Hydrobromide (Citalopram 20 Mg Ptom) 20 mg PO DAILY [facility] Last Admin: 11/10/20 13:47 Dose: 20 mg Documented by: Hydromorphone HCl (Hydromorphone 0.5 Mg/0.5 Ml Syringe) 0.5 mg IVPUSH Q2H PRN PRN Reason: Pain (severe 7-10) Ibuprofen (Ibuprofen 600 Mg Tab) 600 mg PO Q6H PRN PRN Reason: Pain/Fever Last Admin: 11/10/20 03:57 Dose: 600 mg Documented by: Magnesium Hydroxide (Magnesium Hydroxide 400 Mg/5 Ml Susp 30 Ml Cup) 30 ml PO Q12H PRN PRN Reason: Constipation Melatonin (Melatonin 3 Mg Tab) 9 mg PO BEDTIME [facility] Last Admin: 11/09/20 21:47 Dose: 9 mg Documented by: Metoprolol Tartrate (Metoprolol Tartrate 50 Mg Ptom) 50 mg PO DAILY [facility] Last Admin: 11/10/20 13:47 Dose: 50 mg Documented by: Pravastatin 40 Mg (Ptom) 0 mg PO BEDTIME [facility] Ondansetron HCl (Ondansetron 4 Mg Tab.Dis) 4 mg PO Q6H PRN PRN Reason: Nausea able to take PO Ondansetron HCl (Ondansetron 4 Mg/2 Ml Sdv) 4 mg IV Q6H PRN PRN Reason: Nausea/Vomiting Senna/Docusate Sodium (Docusate Sodium/Sennosides 50-8.6 Mg Tab) 1 tab PO BID PRN PRN Reason: Constipation Tamsulosin HCl (Tamsulosin 0.4 Mg Cap.Er Ptom) 0.4 mg PO DAILY [facility] Last Admin: 11/10/20 13:47 Dose: 0.4 mg Documented by: Trolamine Salicylate (Trolamine Salicylate/Aloe Vera 10% Crm 85 Gm Tube) 0 gm TOP Q1H PRN PRN Reason: back pain Discontinued Medications Sodium Chloride (Normal Saline) 85 mls @ 4 mls/sec IV ASDIRECTED STA Stop: 11/10/20 05:44 Last Admin: 11/10/20 06:09 Dose: 4 mls/sec Documented by: Iopamidol (Iopamidol 612 Mg/Ml 150 Ml Bottle) 150 ml IV . DIRECTED STA Stop: 11/10/20 05:43 Last Admin: 11/10/20 06:08 Dose: 150 ml Documented by: - Exam Quality Assessment: Supplemental Oxygen General: Alert, Oriented, Cooperative, No Acute Distress Lungs: Normal Respiratory Effort GI/Abdominal Exam: Soft, No Distention Extremities: No Pedal Edema Skin: Warm, Dry Psy/Mental Status: Alert, Normal Affect - Patient Data Lab Results Last 24 hrs: Laboratory Results - last 24 hr 11/10/20 11/10/20 Range/Units 05:14 05:14 WBC 4.5 (4.5-11.0) K/uL RBC 3.57 L (4.30-5.90) M/uL Hgb 11.4 L (12.0-15.0) g/dL Hct 34.8 L (40.0-54.0) % MCV 98 (80-98) fL MCH 32 H (27-31) pg MCHC 33 (32-36) % Plt Count 184 (150-400) K/uL Sodium 140 (140-148) mmol/L Potassium 3.8 (3.6-5.2) mmol/L Chloride 103 (100-108) mmol/L Carbon Dioxide 27 (21-32) mmol/L Anion Gap 10.4 (5.0-14.0) mmol/L BUN 19 H (7-18) mg/dL Creatinine 1.1 (0.8-1.3) mg/dL Est Cr Clr Drug Dosing 54.19 mL/min Estimated GFR (MDRD) > 60 (>60) Glucose 144 H (74-106) mg/dL Calcium 8.3 L (8.5-10.1) mg/dL Total Bilirubin 0.6 (0.2-1.0) mg/dL AST 36 (15-37) U/L ALT 36 (12-78) U/L Alkaline Phosphatase 60 (46-116) U/L C-Reactive Protein 10.81 H (0.0-0.3) mg/dL Total Protein 5.9 L (6.4-8.2) g/dL Albumin 2.6 L (3.4-5.0) g/dL Globulin 3.3 (2.3-3.5) g/dL Albumin/Globulin Ratio 0.8 L (1.2-2.2) Result Diagrams: 11/10/20 05:14 11/10/20 05:14 [place] Results Last 24 hrs: Microbiology 11/08/20 18:00 Urine Culture - Preliminary Urine, Clean Catch MIXED POSITIVE ELIZ DAY 1 Sepsis Event Note - Evaluation Sepsis Screening Result: No Definite Risk - Focused Exam Vital Signs: Vital Signs Temp Pulse Pulse Resp BP BP Pulse Ox 11/10/20 13:47 91 139/86 11/10/20 12:04 36.3 C 91 14 139/68 98 11/10/20 07:40 36.3 C 82 14 106/60 96 11/10/20 03:45 36.8 C 85 16 128/58 L - Problem List & Annotations (1) T12 compression fracture SNOMED Code(s): 914516594, 345567170 Code(s): S22.080A - WEDGE COMPRESSION FRACTURE OF T11-T12 VERTEBRA, INIT Status: Acute Current Visit: Yes Qualifiers: Encounter type: initial encounter Qualified Code(s): S22.080A - Wedge compression fracture of T11-T12 vertebra, initial encounter for closed fracture (2) Weakness generalized SNOMED Code(s): 42965081 Code(s): R53.1 - WEAKNESS Status: Acute Current Visit: Yes (3) Prostate cancer SNOMED Code(s): 107019570 Code(s): C61 - MALIGNANT NEOPLASM OF PROSTATE Status: Chronic Current Visit: Yes - Problem List Review Problem List Initiated/Reviewed/Updated: Yes - My Orders Last 24 Hours: My Active Orders 11/10/20 Breakfast NPO After Midnight [Nothing per Oral After Midnight Diet] [DIET] 11/10/20 14:00 Citalopram [Celexa] 20 mg PO DAILY Metoprolol Tartrate [Lopressor] 50 mg PO DAILY Tamsulosin [Flomax] 0.4 mg PO DAILY 11/10/20 21:00 Pravastatin Sodium [Pravastatin (Pravachol)] 0 mg PO BEDTIME - Plan Plan:: ASSESSMENT AND PLAN - T12 and L4 compression fractures with back pain and weakness-pain control has improved. Strength still not great and balance is off. CT scan this morning revealed an additional compression fracture at L4. These appeared to be age-indeterminate based on CT scan imaging. Doing better but not safe to be at home alone. -symptomatic management of pain with ibuprofen and hydrocodone -Calcitonin daily -Physical and occupational therapy -Aspercreme as needed -May need TLSO brace Generalized weakness and confusion/memory trouble-MRI unremarkable other than some chronic small vessel ischemic disease. Previous clinic evaluation has sugg ested mild cognitive impairment. History of prostate cancer-difficulty with incontinence since treatment. No evidence for infection based on urinalysis and culture. CT scan of the abdomen and pelvis did not show any significant abnormalities. Maintenance issues - -DVT prophylaxis-SCD -GI prophylaxis-not indicated -Nutrition-regular Admission justification -this patient will be admitted to observation status for pain control, physical therapy and expedited work-up Disposition -[facility] after the hospital stay Brian Brooks M.D.
[2020-11-10] MEDS ORDERED: tiZANidine 4 MG Tab PO PRN (19:20)
[2020-11-10] MEDS: Melatonin 3 MG Tab PO SCH (21:15)
[2020-11-10] MEDS: Pravastatin 40 MG **PTOM PO SCH (21:16)
[2020-11-11] MEDS: Acetaminophen/HYDROcodone 325-5 MG Tab PO PRN ×2 (00:18→23:50)
[2020-11-11] MEDS: Tamsulosin 0.4 MG Cap.ER **PTOM PO SCH (08:15)
[2020-11-11] MEDS: Metoprolol Tartrate 50 MG **PTOM PO SCH (08:15)
[2020-11-11] MEDS: CITALOPRAM 20 MG PO SCH (08:15)
[2020-11-11] MEDS: Calcitonin (Salmon) Nasal Spray 3.7 ML Bottle NAS SCH (08:16)
--- NOTE | 2020-11-11 09:42 | PCM.PN ---
- General Info Date of Service: 11/11/20 Subjective Update: No acute events overnight. Back pain remains tolerable. He thinks it hurts a little less today. Does continue to require minimal assistance but is moving better each day. No fevers. Appetite has been good. Tolerating medication so far. He is agreeable to going to the residential for subacute rehab. Functional Status: Reports: Pain Controlled, Tolerating Diet - Review of Systems General: Reports: Weakness Musculoskeletal: Reports: Back Pain - Patient Data Vitals - Most Recent: Last Vital Signs Temp 36.3 C 11/11/20 08:00 Pulse 77 11/11/20 08:15 Resp 14 11/11/20 08:00 BP 177/80 H 11/11/20 08:15 Pulse Ox 95 11/11/20 08:00 Weight - Most Recent: 99.337 kg I&O - Last 24 Hours: Intake & Output 11/10/20 11/11/20 11/11/20 22:59 06:59 14:59 Intake Total 840 Output Total 450 150 Balance 390 -150 [place] Results Last 24 Hours: Microbiology 11/08/20 18:00 Urine Culture - Final Urine, Clean Catch MIXED POSITIVE ELIZ DAY 2 Med Orders - Current: Current Medications Hydrocodone Bitart/Acetaminophen (Acetaminophen/Hydrocodone 325-5 Mg Tab) 1 - 2 tab PO Q4H PRN PRN Reason: Pain Last Admin: 11/11/20 00:18 Dose: 1 tab Documented by: Albuterol (Albuterol 0.083% 2.5 Mg/3 Ml Neb Soln) 2.5 mg NEB Q4H PRN PRN Reason: Shortness Of Breath/wheezing Calcitonin [place] (Calcitonin ([place]) Nasal [place] 3.7 Ml Bottle) 0 ml ROXIE DAILY [facility] Last Admin: 11/11/20 08:16 Dose: 1 spray Documented by: Citalopram Hydrobromide (Citalopram 20 Mg Ptom) 20 mg PO DAILY [facility] Last Admin: 11/11/20 08:15 Dose: 20 mg Documented by: Hydromorphone HCl (Hydromorphone 0.5 Mg/0.5 Ml Syringe) 0.5 mg IVPUSH Q2H PRN PRN Reason: Pain (severe 7-10) Ibuprofen (Ibuprofen 600 Mg Tab) 600 mg PO Q6H PRN PRN Reason: Pain/Fever Last Admin: 11/10/20 03:57 Dose: 600 mg Documented by: Magnesium Hydroxide (Magnesium Hydroxide 400 Mg/5 Ml Susp 30 Ml Cup) 30 ml PO Q12H PRN PRN Reason: Constipation Melatonin (Melatonin 3 Mg Tab) 9 mg PO BEDTIME [facility] Last Admin: 11/10/20 21:15 Dose: 9 mg Documented by: Metoprolol Tartrate (Metoprolol Tartrate 50 Mg Ptom) 50 mg PO DAILY [facility] Last Admin: 11/11/20 08:15 Dose: 50 mg Documented by: Pravastatin 40 Mg (Ptom) 0 mg PO BEDTIME [facility] Last Admin: 11/10/20 21:16 Dose: 40 mg Documented by: Ondansetron HCl (Ondansetron 4 Mg Tab.Dis) 4 mg PO Q6H PRN PRN Reason: Nausea able to take PO Ondansetron HCl (Ondansetron 4 Mg/2 Ml Sdv) 4 mg IV Q6H PRN PRN Reason: Nausea/Vomiting Senna/Docusate Sodium (Docusate Sodium/Sennosides 50-8.6 Mg Tab) 1 tab PO BID PRN PRN Reason: Constipation Tamsulosin HCl (Tamsulosin 0.4 Mg Cap.Er Ptom) 0.4 mg PO DAILY [facility] Last Admin: 11/11/20 08:15 Dose: 0.4 mg Documented by: Tizanidine HCl (Tizanidine 4 Mg Tab) 2 mg PO Q6H PRN PRN Reason: Muscle Spasm Last Admin: 11/10/20 21:15 Dose: 2 mg Documented by: Trolamine Salicylate (Trolamine Salicylate/Aloe Vera 10% Crm 85 Gm Tube) 0 gm TOP Q1H PRN PRN Reason: back pain Last Admin: 11/10/20 21:16 Dose: 1 tube Documented by: Discontinued Medications Sodium Chloride (Normal Saline) 85 mls @ 4 mls/sec IV ASDIRECTED STA Stop: 11/10/20 05:44 Last Admin: 11/10/20 06:09 Dose: 4 mls/sec Documented by: Iopamidol (Iopamidol 612 Mg/Ml 150 Ml Bottle) 150 ml IV . DIRECTED STA Stop: 11/10/20 05:43 Last Admin: 11/10/20 06:08 Dose: 150 ml Documented by: - Exam Quality Assessment: No: Supplemental Oxygen General: Alert, Oriented, Cooperative, No Acute Distress Lungs: Normal Respiratory Effort GI/Abdominal Exam: Soft, No Distention Extremities: No Pedal Edema Skin: Warm, Dry Psy/Mental Status: Alert, Normal Affect - Patient Data Result Diagrams: 11/10/20 05:14 11/10/20 05:14 [place] Results Last 24 hrs: Microbiology 11/08/20 18:00 Urine Culture - Final Urine, Clean Catch MIXED POSITIVE ELIZ DAY 2 Sepsis Event Note - Evaluation Sepsis Screening Result: No Definite Risk - Focused Exam Vital Signs: Vital Signs Temp Pulse Pulse Resp BP BP Pulse Ox 11/11/20 08:15 77 177/80 H 11/11/20 08:00 36.3 C 77 14 177/80 H 95 11/11/20 03:00 36.4 C 68 13 11/10/20 23:00 36.7 C 78 12 145/68 H 95 - Problem List & Annotations (1) T12 compression fracture SNOMED Code(s): 396938648, 644534599 Code(s): S22.080A - WEDGE COMPRESSION FRACTURE OF T11-T12 VERTEBRA, INIT Status: Acute Current Visit: Yes Qualifiers: Encounter type: initial encounter Qualified Code(s): S22.080A - Wedge com pression fracture of T11-T12 vertebra, initial encounter for closed fracture (2) Weakness generalized SNOMED Code(s): 05170973 Code(s): R53.1 - WEAKNESS Status: Acute Current Visit: Yes (3) Prostate cancer SNOMED Code(s): 082292172 Code(s): C61 - MALIGNANT NEOPLASM OF PROSTATE Status: Chronic Current Visit: Yes - Problem List Review Problem List Initiated/Reviewed/Updated: Yes - My Orders Last 24 Hours: My Active Orders 11/10/20 14:00 Citalopram [Celexa] 20 mg PO DAILY Metoprolol Tartrate [Lopressor] 50 mg PO DAILY Tamsulosin [Flomax] 0.4 mg PO DAILY 11/10/20 19:20 tiZANidine [Zanaflex] 2 mg PO Q6H PRN 11/10/20 21:00 Pravastatin Sodium [Pravastatin (Pravachol)] 0 mg PO BEDTIME - Plan Plan:: ASSESSMENT AND PLAN - T12 and L4 compression fractures with back pain and weakness-pain control has improved. Strength still not great and balance is off but he is showing some improvements. Imaging suggest fractures are subacute but pain is acute. -symptomatic management of pain with ibuprofen and hydrocodone -Calcitonin daily -Physical and occupational therapy -Aspercreme as needed -May need TLSO brace Generalized weakness and confusion/memory trouble-MRI unremarkable other than some chronic small vessel ischemic disease. Previous clinic evaluation has suggested mild cognitive impairment. History of prostate cancer-difficulty with incontinence since treatment. No evidence for infection based on urinalysis and culture. CT scan of the abdomen and pelvis did not show any significant abnormalities. Maintenance issues - -DVT prophylaxis-SCD -GI prophylaxis-not indicated -Nutrition-regular Admission justification -this patient will be admitted to observation status for pain control, physical therapy and expedited work-up Disposition -I anticipate discharge to the residential for subacute rehab after the hospital stay Brian Brooks M.D.
--- NOTE | 2020-11-11 13:41 | PCM.DCSUM1 ---
Discharge Summary - Hospital Course Brief History: 85-year-old male with history of hypertension and prostate cancer who presented initially to the clinic with acute back pain and weakness after falling at home several days prior. He was directly admitted from the clinic for management of compression fracture pain. Diagnosis: Stroke: No - Discharge Data Discharge Date: 11/12/20 Discharge Disposition: DC/Tfer to SNF 03 Condition: Good - Referral to Home Health Primary Care Physician: Otto Macias MD - Discharge Diagnosis/Problem(s) (1) T12 compression fracture SNOMED Code(s): 581325972, 470378873 ICD Code: S22.080A - WEDGE COMPRESSION FRACTURE OF T11-T12 VERTEBRA, INIT Status: Acute Current Visit: Yes Qualifiers: Encounter type: initial encounter Qualified Code(s): S22.080A - Wedge compression fracture of T11-T12 vertebra, initial encounter for closed fracture (2) Compression fracture of L4 vertebra SNOMED Code(s): 771939577, [id number] ICD Code: S32.040A - WEDGE COMPRESSION FRACTURE OF FOURTH LUMBAR VERTEBRA, INIT Status: Acute Current Visit: Yes Qualifiers: Encounter type: initial encounter Qualified Code(s): S32.040A - Wedge compression fracture of fourth lumbar vertebra, initial encounter for closed fracture (3) Weakness generalized SNOMED Code(s): 60887140 ICD Code: R53.1 - WEAKNESS Status: Acute Current Visit: Yes (4) Prostate cancer SNOMED Code(s): 640910662 ICD Code: C61 - MALIGNANT NEOPLASM OF PROSTATE Status: Chronic Current Visit: Yes - Patient Summary/Data Consults: Consultations 11/08/20 15:26 PT Evaluation and Treatment [CONS] Routine Please Evaluate and Treat. PT Reason for Consult: Strengthening This query below is only for informational purposes and is not editable. 11/08/20 15:28 OT Evaluation and Treatment [CONS] Routine Please Evaluate and Treat. OT Reason for Consult: Strengthening This query below is only for informational purposes and is not editable. Admission Diagnosis/Problem: Compression fracture of T12 vertebra Hospital Course: Itz presented to the clinic with persistent back pain and weakness. He had fallen several days prior and hit his back on a coffee table. Imaging the day prior had revealed a compression fracture at T12. He was sent home with pain pills since he had improved with pain management in the emergency room. Overnight prior to admission he had a fair amount of difficulty with pain and weakness. He was sent from the primary care clinic for direct admission for pain control. We started him on hydrocodone along with ibuprofen. We did start calcitonin with his 60% reduction in height at T12. We did discuss a TLSO brace. Overnight following admission he had a fair amount of improvement in both pain and mobility. He has been using a walker fairly effectively. Because of his fairly rapid improvement we have held off on a TLSO brace. He has had some recen t memory and balance issues. A CT scan of the brain was unremarkable other than some mild atrophy. MRI of the brain showed similar findings though the final read is still pending. His CRP was noted to be quite elevated during the work-up so we performed a CT scan of the abdomen and pelvis and this did not show any significant abnormalities. I suspect the elevated CRP is related to muscular trauma with his recent fall and injury. The CT scan of the abdomen and pelvis did show an additional L4 fracture with about 60% loss of height as well. Patient has made good progress throughout the course of the hospital stay. He is moving better each day. He does remain weak with some impairment of his balance but he has made progress. Pain control has improved considerably but there is still some room for improvement. After discussions with the patient and family if the plan is for him to go to the retirement for subacute rehab for short period of time before returning home. 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 Hopefully with a short period of rehab he will be able to resume that role. There was no evidence for infection. Patient is stable and safe for discharge at this time. Plan is for him to go to [facility] on Thursday. - Patient Instructions Diet: Regular Diet as Tolerated Activity: As Tolerated Showering/Bathing: May Shower Other/Special Instructions: 1. You were in the hospital for pain control after we discovered to compression fractures in your lower spine, 1 at T12 and 1 at L4. Your symptoms have been improving with pain control provided here in the hospital. We will continue to utilize ibuprofen, acetaminophen and hydrocodone for pain. We will also use Aspercreme and a muscle relaxer as needed. You may be active as tolerated. 2. Referral to physical and occupational therapy for strengthening following compression fractures. 3. CODE STATUS-full code - Discharge Plan Prescriptions/Med Rec: Acetaminophen 325 mg PO Q4H PRN #200 tablet PRN Reason: Pain Trolamine Salicylate/Aloe Vera [Aspercreme 10%] 1 gm TOP Q4H PRN #1 tube PRN Reason: back pain Hydrocodone/Acetaminophen [Hydrocodon-Acetaminophen 5-325] 1 each PO Q4H PRN #30 PRN Reason: Pain Calcitonin ([place]) [Miacalcin Nasal [place]] 1 ml ROXIE DAILY 14 Days #1 bottle Ibuprofen [Motrin] 600 mg PO Q6H PRN #100 tablet PRN Reason: Pain/Fever tiZANidine 2 mg PO Q6H PRN #30 cap PRN Reason: Muscle Spasm Home Medications: Home Meds Metoprolol Tartrate [Lopressor] 50 mg PO DAILY 06/01/13 [History] Pravastatin Sodium [Pravastatin (Pravachol)] 40 mg PO BEDTIME 06/01/13 [History] Citalopram [Citalopram HBr] 1 tab PO DAILY 11/08/20 [History] Tamsulosin [Flomax] 0.4 mg PO DAILY 11/08/20 [History] Acetaminophen 325 mg PO Q4H PRN #200 tablet 11/11/20 [Rx] Calcitonin ([place]) [Miacalcin Nasal [place]] 1 ml ROXIE DAILY 14 Days #1 bottle 11/11/20 [Rx] Hydrocodone/Acetaminophen [Hydrocodon-Acetaminophen 5-325] 1 each PO Q4H PRN #30 11/11/20 [Rx] Ibuprofen [Motrin] 600 mg PO Q6H PRN #100 tablet 11/11/20 [Rx] Trolamine Salicylate/Aloe Vera [Aspercreme 10%] 1 gm TOP Q4H PRN #1 tube [Rx] tiZANidine 2 mg PO Q6H PRN #30 cap 11/11/20 [Rx] Patient Handouts: Lumbar Spine Fracture Referrals: Otto Macias MD [Primary Care Provider] - (1-2 weeks - f/u hospital stay for compression fractures) - Discharge Summary/Plan Comment DC Time >30 min.: Yes (40-new [facility] discharge ) - Patient Data Vitals - Most Recent: Last Vital Signs Temp 36.2 C 11/11/20 12:02 Pulse 65 11/11/20 12:02 Resp 12 11/11/20 12:02 BP 123/47 L 11/11/20 12:02 Pulse Ox 97 11/11/20 12:02 Weight - Most Recent: 99.337 kg I&O - Last 24 hours: Intake & Output 11/10/20 11/11/20 11/11/20 22:59 06:59 14:59 Intake Total 840 480 Output Total 450 400 Balance 390 80 [place] Results - Last 24 hrs: Microbiology 11/08/20 18:00 Urine Culture - Final Urine, Clean Catch MIXED POSITIVE ELIZ DAY 2 Med Orders - Current: Current Medications Hydrocodone Bitart/Acetaminophen (Acetaminophen/Hydrocodone 325-5 Mg Tab) 1 - 2 tab PO Q4H PRN PRN Reason: Pain Last Admin: 11/11/20 00:18 Dose: 1 tab Documented by: Albuterol (Albuterol 0.083% 2.5 Mg/3 Ml Neb Soln) 2.5 mg NEB Q4H PRN PRN Reason: Shortness Of Breath/wheezing Calcitonin [place] (Calcitonin ([place]) Nasal [place] 3.7 Ml Bottle) 0 ml ROXIE DAILY [facility] Last Admin: 11/11/20 08:16 Dose: 1 spray Documented by: Citalopram Hydrobromide (Citalopram 20 Mg Ptom) 20 mg PO DAILY [facility] Last Admin: 11/11/20 08:15 Dose: 20 mg Documented by: Hydromorphone HCl (Hydromorphone 0.5 Mg/0.5 Ml Syringe) 0.5 mg IVPUSH Q2H PRN PRN Reason: Pain (severe 7-10) Ibuprofen (Ibuprofen 600 Mg Tab) 600 mg PO Q6H PRN PRN Reason: Pain/Fever Last Admin: 11/10/20 03:57 Dose: 600 mg Documented by: Magnesium Hydroxide (Magnesium Hydroxide 400 Mg/5 Ml Susp 30 Ml Cup) 30 ml PO Q12H PRN PRN Reason: Constipation Melatonin (Melatonin 3 Mg Tab) 9 mg PO BEDTIME [facility] Last Admin: 11/10/20 21:15 Dose: 9 mg Documented by: Metoprolol Tartrate (Metoprolol Tartrate 50 Mg Ptom) 50 mg PO DAILY [facility] Last Admin: 11/11/20 08:15 Dose: 50 mg Documented by: Pravastatin 40 Mg (Ptom) 0 mg PO BEDTIME [facility] Last Admin: 11/10/20 21:16 Dose: 40 mg Documented by: Ondansetron HCl (Ondansetron 4 Mg Tab.Dis) 4 mg PO Q6H PRN PRN Reason: Nausea able to take PO Ondansetron HCl (Ondansetron 4 Mg/2 Ml Sdv) 4 mg IV Q6H PRN PRN Reason: Nausea/Vomiting Senna/Docusate Sodium (Docusate Sodium/Sennosides 50-8.6 Mg Tab) 1 tab PO BID PRN PRN Reason: Constipation Tamsulosin HCl (Tamsulosin 0.4 Mg Cap.Er Ptom) 0.4 mg PO DAILY [facility] Last Admin: 11/11/20 08:15 Dose: 0.4 mg Documented by: Tizanidine HCl (Tizanidine 4 Mg Tab) 2 mg PO Q6H PRN PRN Reason: Muscle Spasm Last Admin: 11/10/20 21:15 Dose: 2 mg Documented by: Trolamine Salicylate (Trolamine Salicylate/Aloe Vera 10% Crm 85 Gm Tube) 0 gm TOP Q1H PRN PRN Reason: back pain Last Admin: 11/10/20 21:16 Dose: 1 tube Documented by: Discontinued Medications Sodium Chloride (Normal Saline) 85 mls @ 4 mls/sec IV ASDIRECTED STA Stop: 11/10/20 05:44 Last Admin: 11/10/20 06:09 Dose: 4 mls/sec Documented by: Iopamidol (Iopamidol 612 Mg/Ml 150 Ml Bottle) 150 ml IV . DIRECTED STA Stop: 11/10/20 05:43 Last Admin: 11/10/20 06:08 Dose: 150 ml Documented by:
[2020-11-11] MEDS: Pravastatin 40 MG **PTOM PO SCH (20:55)
[2020-11-11] MEDS: Melatonin 3 MG Tab PO SCH (20:57)
[2020-11-12] MEDS: Tamsulosin 0.4 MG Cap.ER **PTOM PO SCH ×2 (08:28→08:37)
[2020-11-12] MEDS: CITALOPRAM 20 MG PO SCH (08:29)
[2020-11-12] MEDS: Metoprolol Tartrate 50 MG **PTOM PO SCH (08:29)
[2020-11-12] MEDS: Calcitonin (Salmon) Nasal Spray 3.7 ML Bottle NAS SCH (08:31)
[2020-11-12 10:59] VITALS: BP 122/53; PULSE 66
--- NOTE | 2020-11-12 11:50 | MR ---
Brain wo Cont CLINICAL HISTORY: Falls, balance and gait issue, compared memory COMPARISON: CT 2017 TECHNIQUE: Multiple axial, sagittal, and coronal images were obtained on a 1.5 T magnet with multiweighted sequences, FLAIR, and diffusion imaging without contrast. FINDINGS: There is no focal mass lesion. There is no hemmorhage or extraaxial collection. There is no restricted diffusion. There are a few scattered T2 hyperintensities in the periventricular and subcortical white matter. The basal cisterns and sulci over the convexities are mildly prominent. The ventricles are moderately enlarged. They have increased in size since 2017. IMPRESSION: Mild to moderate atrophic change. There is an interval increase in ventricular size since 2017. This may represent progressive atrophy. Normal pressure hydrocephalus is not definitely excluded. Clinical correlation necessary Chronic ischemic white matter changes
== END 2020-11-12 13:30 ==
LOC: JP.ICU 14:20 → JP.MS 11-11 18:36
PROVIDERS: ADMIT Internal Medicine; ATTEND Hospitalist
DX: S22.080A Wedge compression fracture of T11-T12 vertebra, initial encounter for closed fracture (principal); S32.040A Wedge compression fracture of fourth lumbar vertebra, initial encounter for closed fracture; I10 Essential (primary) hypertension; C61 Malignant neoplasm of prostate; R53.1 Weakness; W19.XXXA Unspecified fall, initial encounter; Z79.899 Other long term (current) drug therapy
CPT/HCPCS: 36415; 70551; 74177; 80053; 81001; 84443; 85027; 85651; 86140; 87086; 97116; 97162; 97165; 97530; 97535; A9270; G0378; G0379; Q9967

== ENCOUNTER 2021-06-01 20:44 | Emergency (ER) | payer MEDICARE ==
--- NOTE | 2021-06-01 21:09 | EDM.PDOC ---
ED HPI GENERAL MEDICAL PROBLEM - General Stated Complaint: MEDICAL [facility]IA [facility] Time Seen by Provider: 06/01/21 20:45 Source of Information: Reports: Patient, EMS History Limitations: Reports: No Limitations - History of Present Illness INITIAL COMMENTS - FREE TEXT/NARRATIVE: 86-year-old male who lives in a [facility] center, seems less responsive today so they sent him in to be checked. The patient himself has no complaints. He is not hypoxic, blood pressure is good, he is not febrile. He does seem mildly lethargic but I do not know what his baseline is. Apparently he is able to ambulate with assistance at baseline according to the nursing notes. When of the absorption operator who picked him up he has known this patient for a long time, the patient recognized him even with his mask on and is answering questions appropriately. He opened his eyes on request. Onset: Unknown/Unsure Associated Symptoms: Reports: Confusion, Weakness. Denies: Chest Pain, Cough, Fever/Chills, Headaches, Nausea/Vomiting, Shortness of Breath lower back pain Pain Score (Numeric/FACES): 6 - Related Data Allergies Allergy/AdvReac Type Severity Reaction Status Date / Time enviromental Allergy Other Uncoded 06/01/21 21:50 Home Meds: Home Meds Metoprolol Tartrate [Lopressor] 50 mg PO DAILY 06/01/13 [History] Pravastatin Sodium [Pravastatin (Pravachol)] 40 mg PO BEDTIME 06/01/13 [History] Citalopram [Citalopram HBr] 1 tab PO DAILY 11/08/20 [History] Tamsulosin [Flomax] 0.4 mg PO DAILY 11/08/20 [History] Acetaminophen 325 mg PO Q4H PRN #200 tablet 11/11/20 [Rx] Calcitonin ([place]) [Miacalcin Nasal [place]] 1 ml ROXIE DAILY 14 Days #1 bottle 11/11/20 [Rx] Hydrocodone/Acetaminophen [HYDROcodone-Acetaminophen 5-325 MG] 1 each PO Q4H PRN #30 11/11/20 [Rx] Ibuprofen [Motrin] 600 mg PO Q6H PRN #100 tablet 11/11/20 [Rx] Trolamine Salicylate/Aloe Vera [Aspercreme 10%] 1 gm TOP Q4H PRN #1 tube 05/09/21 [Rx] tiZANidine 2 mg PO Q6H PRN #30 cap 11/11/20 [Rx] Past Medical History HEENT History: Reports: Hard of Hearing, Impaired Vision Cardiovascular History: Reports: Arrhythmia, High Cholesterol, Hypertension Gastrointestinal History: Reports: Colon Polyp Genitourinary History: Reports: Prostate Disorder, Other (See Below) Other Genitourinary History: Hx prostate cancer Musculoskeletal History: Reports: Fracture, Other (See Below) Other Musculoskeletal History: 11/07/2020: Mod T12 compression fx of indeterminate age; stable old mild T8 compression fx; stable mild superior T8 and T9 endplate fractures. Oncologic (Cancer) History: Reports: Prostate Dermatologic History: Reports: Other (See Below) Other Dermatologic History: Pemphigoid - Infectious Disease History Infectious Disease History: Reports: Chicken Pox, Measles, Mumps - Past Surgical History HEENT Surgical History: Reports: Tonsillectomy Cardiovascular Surgical History: Reports: None GI Surgical History: Reports: Colonoscopy, Polypectomy Male Surgical History: Reports: Prostate Biopsy Dermatological Surgical History: Reports: None Social & Family History - Family History Family Medical History: No Pertinent Family History - Caffeine Use Caffeine Use: Reports: Coffee ED ROS GENERAL - Review of Systems Review Of Systems: See Below Constitutional: Denies: Fever, Chills HEENT: Denies: Vision Change Respiratory: Denies: Shortness of Breath Cardiovascular: Denies: Chest Pain GI/Abdominal: Reports: No Symptoms Musculoskeletal: Reports: Other (Patient does have some intermittent neck discomfort) Skin: Reports: No Symptoms Neurological: Reports: Dizziness, Weakness ED EXAM, GENERAL - Physical Exam Exam: See Below Exam Limited By: No Limitations General Appearance: Alert, No Apparent Distress, Other (Patient does seem very sedated or fatigue, global weakness) Eye Exam: Bilateral Eye: EOMI, PERRL Head: Atraumatic Neck: Supple, Other (Patient does react with a little bit of discomfort with palpation of the paracervical muscles, especially on the right side) Respiratory/Chest: No Respiratory Distress, Lungs Clear Cardiovascular: Regular Rate, Rhythm GI/Abdominal: Soft, Non-Tender Extremities: Other (Just a trace of edema at the ankles) Neurological: Alert, Disoriented (Not oriented to place or time), Slow to Respond Psychiatric: Depressed Mood, Flat Affect Skin Exam: Warm, Dry Course - Vital Signs Last Recorded V/S: Last Vital Signs Temp 97.9 F 06/01/21 21:58 Pulse 95 06/01/21 21:58 Resp 13 06/01/21 21:58 BP 172/76 H 06/01/21 21:58 Pulse Ox 95 06/01/21 21:58 - Orders/Labs/Meds Labs: Laboratory Tests 06/01/21 06/01/21 Range/Units 21:11 21:11 WBC 7.6 (4.5-11.0) K/uL RBC 4.23 L (4.30-5.90) M/uL Hgb 12.7 (12.0-15.0) g/dL Hct 38.9 L (40.0-54.0) % MCV 92 (80-98) fL MCH 30 (27-31) pg MCHC 33 (32-36) % Plt Count 381 (150-400) K/uL Neut % (Auto) 69.7 H (36-66) % Lymph % (Auto) 14.2 L (24-44) % [place] % (Auto) 12.8 H (2-6) % Eos % (Auto) 2.6 (2-4) % Baso % (Auto) 0.7 (0-1) % Sodium 138 L (140-148) mmol/L Potassium 4.4 (3.6-5.2) mmol/L Chloride 101 (100-108) mmol/L Carbon Dioxide 28 (21-32) mmol/L Anion Gap 13.4 (5.0-14.0) mmol/L BUN 21 H (7-18) mg/dL Creatinine 1.0 (0.8-1.3) mg/dL Est Cr Clr Drug Dosing TNP Estimated GFR (MDRD) > 60 (>60) Glucose 119 H (74-106) mg/dL Calcium 9.2 (8.5-10.1) mg/dL Total Bilirubin 0.5 (0.2-1.0) mg/dL AST 15 (15-37) U/L ALT 24 (12-78) U/L Alkaline Phosphatase 137 H D (46-116) U/L Total Protein 7.1 (6.4-8.2) g/dL Albumin 3.5 (3.4-5.0) g/dL Globulin 3.6 H (2.3-3.5) g/dL Albumin/Globulin Ratio 1.0 L (1.2-2.2) - Re-Assessments/Exams Free Text/Narrative Re-Assessment/Exam: 06/01/21 21:12 CT the head along with a CBC and CMP were obtained. 06/01/21 22:08 IMPRESSION: 1. No acute intracranial disease. 2. Chronic volume loss and chronic small vessel ischemic changes. 3. Dilatation of the ventricular system is unchanged and may relate to central white matter volume loss. Above findings on the CT scan, labs are nonspecific and reassuring. Patient continued to be very tired and weak. Unfortunately this may be progressive aging as the family said this is been going on and worsening for several weeks. He may need more comprehensive care out at [facility] which can be done by moving him in with his . We will try to get him transferred back so they can work on this increased level of care. Departure - Departure Time of Disposition: 22:20 Disposition: DC/Tfer to [facility] Clinical Impression: Generalized weakness Change in mental status Qualifiers: Altered mental status type: somnolence Qualified Code(s): R40.0 - Somnolence - Discharge Information Instructions: Weakness, [id number] Referrals: Otto Macias MD [Primary Care Provider] - Forms: ED Department Discharge Care Plan Goals: Patient may need transfer to more comprehensive care, progressive generalized weakness and somnolence appears to be likely to progressive cerebral atrophy and aging. Sepsis Event Note (ED) - Focused Exam Vital Signs: Vital Signs Temp Pulse Resp BP Pulse Ox 06/01/21 21:58 97.9 F 95 13 172/76 H 95 06/01/21 20:49 97.9 F 95 13 172/76 H 95
[2021-06-01 21:58] VITALS: BP 172/76; PULSE 95
--- NOTE | 2021-06-01 22:02 | CRLCT ---
For Patients: As a result of the Cures Act, medical imaging exams and procedure reports are released immediately into your electronic medical record. You may view this report before your referring provider. If you have questions, please contact your health care provider. HISTORY: Decreased mental status. TECHNIQUE: Noncontrast head CT. COMPARISON: 11/07/2020. FINDINGS: No acute intracranial hemorrhage or acute ischemic infarct. Areas of white matter low attenuation are nonspecific but likely reflect sequelae of chronic small vessel ischemic changes. No change in dilatation of the ventricular system which may relate to central white matter volume loss. No mass effect or midline shift. No acute loss of gil-white differentiation. The mastoid air cells are clear. The paranasal sinuses are clear. There is no acute skull fracture. IMPRESSION: 1. No acute intracranial disease. 2. Chronic volume loss and chronic small vessel ischemic changes. 3. Dilatation of the ventricular system is unchanged and may relate to central white matter volume loss. Dictated by Joon Ybarra MD @ 06/01/2021 9:58:19 PM Please note that all CT scans at this facility use dose modulation, iterative reconstruction, and/or weight-based dosing when appropriate to reduce radiation dose to as low as reasonably achievable. Dictated by: Joon Ybarra MD @ 06/01/2021 22:00:25 (Electronically Signed)
== END 2021-06-01 23:25 ==
LOC: JP.ED 20:44
DX: R40.0 Somnolence (principal); R53.1 Weakness; E78.00 Pure hypercholesterolemia, unspecified; I10 Essential (primary) hypertension; Z79.899 Other long term (current) drug therapy; Z91.09 Other allergy status, other than to drugs and biological substances
CPT/HCPCS: 36415; 70450; 80053; 85025; 99285-25